=== PATIENT | male | born 1990 | race Caucasian/White ===

== ENCOUNTER 2021-11-07 16:29 | Emergency (ER) | payer MEDICAID ==
[2021-11-07] MEDS ORDERED: Amoxicillin/Clavulanate K 875-125 MG Tab PO ONE (17:10)
[2021-11-07] MEDS ORDERED: Ketorolac 30 MG/ML SDV IM ONE (17:15)
== END 2021-11-07 17:29 | disposition home or self-care (01) ==
LOC: FB.ED 16:29
DX: S61.451A Open bite of right hand, initial encounter (principal); L08.9 Local infection of the skin and subcutaneous tissue, unspecified; W50.3XXA Accidental bite by another person, initial encounter
CPT/HCPCS: 96372; 99281; 99283; A9270-GY; J1885